=== PATIENT | male | born 1995 | race Caucasian/White ===

== ENCOUNTER → 2023-09-20 13:02 | Outpatient (CLI) | payer OTHER, SELFPAY ==
--- NOTE | 2023-09-20 | DI.RAD.S_ITS ---
PROCEDURE: FL SHOULDER INJECTION MR/CT LT INDICATIONS: RIGHT SHOULDER PAIN COMPARISON: [facility], MR, MR SHOULDER LT W CON, 09/20/2023, 13:17. TECHNIQUE: The indications, alternatives, benefits, risks, and complications of the procedure were explained to the patient. Written informed consent was obtained and placed in the chart. The shoulder was examined fluoroscopically and a site for needle placement chosen for entry into the glenohumeral joint from an anterior approach. The skin was prepped and draped in a sterile fashion, and 1% lidocaine infiltrated from skin down to joint capsule. A spinal needle was inserted into the glenohumeral joint, and a small amount of iodinated contrast media injected to confirm intra-articular placement of the needle tip. This was followed by approximately 12 mL dilute solution of a gadolinium containing MR contrast agent. The needle was removed and a dressing was applied. The patient was given postprocedural instructions and sent to the MR suite for MR imaging. FINDINGS: A single fluoroscopic spot image demonstrates intra-articular location of injected iodinated contrast. IMPRESSION: Successful fluoroscopically guided administration of dilute Gadolinium solution into the shoulder joint for MR arthrogram. Dictated by: Svetlana Barnett M.D. on 09/20/2023 at 16:23 Approved by: Svetlana Barnett M.D. on 09/20/2023 at 16:23
--- NOTE | 2023-09-20 13:46 | DI.MRI.S_ITS ---
PROCEDURE: MR SHOULDER LT W CON INDICATIONS: LEFT SHOULDER PAIN TECHNIQUE: After the administration of 12 mL of dilute intra-articular Gadolinium contrast, oblique coronal T1 and T2 spin echo with fat saturation, oblique sagittal T1 spin echo with and without fat saturation, oblique sagittal T2 fast spin echo with fat saturation, axial T1 spin echo with fat saturation through the shoulder. COMPARISON: [facility], , [place] SHOULDER INJECTION MR/CT LT, 09/20/2023, 13:24. FINDINGS: Image quality: Excellent. Rotator cuff: Mild bursal surface fraying is seen at the supraspinatus tendon without significant tearing. The infraspinatus, teres minor, and subscapularis tendons are intact. Rotator cuff musculature appears normal. Bones and bursae: Hill-Sachs lesion is seen at the posterior superior humeral head measuring approximately 17 x 17 x 3 mm with moderate adjacent osseous edema. No acute glenoid fracture is seen. No focal glenohumeral cartilage defect. Acromioclavicular joint is intact. Trace noncommunicating subacromial/subdeltoid bursal fluid. No suspicious filling defect is seen in the glenohumeral joint space. Capsule and soft tissues: Minimally displaced tear is seen at the anterior inferior labrum with uptake of intra-articular contrast material. Periosteal attachment appears to remain intact (minimally displaced Perthes lesion). Anterior superior labrum appears mildly diminutive, which is likely congenital. The remainder of the labrum appears to be grossly intact. The proximal biceps long head tendon is intact. Glenohumeral ligaments appear to be intact. IMPRESSION: 1. 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 2. Minimally displaced tear is seen at the anterior inferior labrum with an intact periosteal attachment. No acute glenoid fracture. 3. Mild bursal surface fraying at the distal supraspinatus insertion without significant rotator cuff tendon tearing Approved by: Shiva Mendoza M.D. on 09/20/2023 at 16:25
[2023-09-20] MEDS: LIDOCAINE 1% 20 ML INJ (17:09)
[2023-09-20] MEDS: SODIUM CHLORIDE 0.9 % 20 ML VIAL IV (17:10)
== END ==
DX: S43.016A Anterior dislocation of unspecified humerus, initial encounter (principal); X58.XXXA Exposure to other specified factors, initial encounter
CPT/HCPCS: 23350; 73222